=== PATIENT | male | born 1970 | race Caucasian/White ===

== ENCOUNTER 2022-03-18 15:54 | Emergency (ER) | payer SELFPAY ==
[2022-03-18 16:07] VITALS: BP 145/78; PULSE 104; TEMP 98.2; BMI 25.2
== END 2022-03-18 19:17 | disposition home or self-care (01) ==
LOC: JERFT 15:54 → JER 15:54 → JERFT 19:17
DX: F10.10 Alcohol abuse, uncomplicated (principal)
CPT/HCPCS: 99281-25